=== PATIENT | female | born 1970 | race Caucasian/White ===

== ENCOUNTER 2018-05-02 13:45 | Emergency (ER) | payer MEDICAID ==
[2018-05-02 14:24] VITALS: BP 137/86
[2018-05-02] MEDS ORDERED: GABAPENTIN 100 MG CAPSULE PO STA (15:31)
[2018-05-02] MEDS ORDERED: CYCLOBENZAPRINE 10 MG TABLET PO STA (15:31)
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
[2018-05-02 15:47] LABS: BILIRUBIN,URINE NEGATIVE (NEGATIVE); GLUCOSE, URINE (UA) NEGATIVE (NEGATIVE); KETONES,URINE (UA) NEGATIVE (NEGATIVE); LEUKOCYTE ESTERASE, URINE NEGATIVE (NEGATIVE); NITRITE,URINE NEGATIVE (NEGATIVE); OCCULT BLOOD,URINE NEGATIVE (NEGATIVE); PROTEIN,URINE NEGATIVE (NEGATIVE); UROBILINOGEN,URINE 0.2 (NORMAL) E.U./dL (NORMAL)
[2018-05-02 15:50] LABS: CLARITY,URINE CLEAR (CLEAR)
[2018-05-02 15:51] LABS: HCG UR QUAL NEGATIVE
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
== END 2018-05-02 16:22 | disposition home or self-care (01) ==
LOC: ED 13:45
DX: R61 Generalized hyperhidrosis (principal); R35.0 Frequency of micturition; F13.239 Sedative, hypnotic or anxiolytic dependence with withdrawal, unspecified; S50.02XA Contusion of left elbow, initial encounter; T74.21XA Adult sexual abuse, confirmed, initial encounter; R03.0 Elevated blood-pressure reading, without diagnosis of hypertension
CPT/HCPCS: 73080; 81003; 81025; 99282; 99283; A9270; 81001; 87086

== ENCOUNTER 2018-06-01 10:12 | Emergency (ER) | payer MEDICARE, MEDICAID ==
[2018-06-01 10:25] VITALS: BP 132/73
--- NOTE | 2018-06-01 12:03 | ED Physician Documentation ---
PD HPI URI - Stated complaint Stated Complaint: MED REFILL - Chief complaint Chief Complaint: General - History obtained from History obtained from: Patient - History of Present Illness Timing - onset: How many days ago (feeling anxious, and has had sinus pressure and congestion) Timing duration: Days (has been out of meds for few days. Recently moved here. Does not have PCP as yet. Now with sinus congestion and drainage as well.) Timing details: Still present Associated symptoms: Nasal congestion, Sinus pain. No: Fever, Productive cough, Hemoptysis Contributing factors: No: Sick contact Similar symptoms before: Has not had sx before Recently seen: Not recently seen Review of Systems Constitutional: denies: Fever, Chills, Myalgias Nose: reports: Rhinorrhea / runny nose, Congestion, Sinus pressure / pain Throat: denies: Sore throat Respiratory: denies: Cough GI: denies: Nausea, Vomiting, Diarrhea Skin: denies: Rash, Lesions Neurologic: reports: Generalized weakness. denies: Focal weakness, Numbness Psychiatric: reports: Anxiety. denies: Depressed, Suicidal PD PAST MEDICAL HISTORY - Past Medical History Past Medical History: Yes Psych: Depression, Anxiety - Present Medications Home Medications: Ambulatory Orders Medication Instructions Recorded Confirmed Alprazolam [Xanax] 0.25 mg PO BID #25 tablet 06/01/18 Cyclobenzaprine [Flexeril] 10 mg PO TID PRN #20 tablet 06/01/18 Dexamethasone [Decadron] 4 mg PO DAILY #5 tablet 06/01/18 Doxycycline Monohydrate 100 mg PO BID #14 tablet 06/01/18 Gabapentin 300 mg PO TID #120 capsule 06/01/18 Ibuprofen [Motrin] 800 mg PO Q8H PRN #30 tablet 06/01/18 - Allergies Allergies/Adverse Reactions: Allergies Allergy/AdvReac Type Severity Reaction Status Date / Time Sulfa (Sulfonamide Allergy Intermediate Nausea Verified 06/01/18 10:25 Antibiotics) - Social History Does the pt smoke?: Yes PD ED PE NORMAL - Vitals Vital signs reviewed: Yes - General General: Alert and oriented X 3, No acute distress, Well developed/nourished - HEENT HEENT: Ears normal, Moist mucous membranes, Pharynx benign - Neck Neck: Supple, no meningeal sign, No adenopathy - Cardiac Cardiac: RRR, No murmur - Respiratory Respiratory: Clear bilaterally - Abdomen Abdomen: Soft, Non tender - Derm Derm: Normal color, Warm and dry, No rash - Extremities Extremities: No tenderness to palpate, Normal ROM s pain - Neuro Neuro: Alert and oriented X 3, No motor deficit, Normal speech Results - Vitals Vitals: Vital Signs - 24 hr 06/01/18 10:22 Temperature 35.7 C L Heart Rate 76 Respiratory 15 Rate Blood Pressure 132/73 H O2 Saturation 100 Oxygen O2 Source Room air PD MEDICAL DECISION MAKING - ED course Complexity details: considered differential, d/w patient Departure - Departure Disposition: Home, Self Care Clinical Impression: Medication refill, Anxiety Sinusitis, acute Qualifiers: Sinusitis location: unspecified location Recurrence: non-recurrent Qualified Code(s): J01.90 - Acute sinusitis, unspecified Condition: Stable Record reviewed to determine appropriate education?: Yes Instructions: ED Sinusitis Abx Tx Prescriptions: Alprazolam [Xanax] 0.25 mg PO BID #25 tablet Cyclobenzaprine [Flexeril] 10 mg PO TID PRN #20 tablet PRN Reason: Spasms Dexamethasone [Decadron] 4 mg PO DAILY #5 tablet Doxycycline Monohydrate 100 mg PO BID #14 tablet Gabapentin 300 mg PO TID #120 capsule Ibuprofen [Motrin] 800 mg PO Q8H PRN #30 tablet PRN Reason: PAIN &/OR FEVER Comments: Doxycycline and Decadron for the sinus infection for the infection and inflammation. Continue your other usual medications. Obtain a local primary care provider. You will need to see them for further refills and continued prescriptions. Discharge Date/Time: 06/01/18 12:37
== END 2018-06-01 12:37 | disposition home or self-care (01) ==
LOC: ED 10:12
DX: Z76.0 Encounter for issue of repeat prescription (principal); F41.9 Anxiety disorder, unspecified; J01.90 Acute sinusitis, unspecified
CPT/HCPCS: 99283

== ENCOUNTER 2018-09-13 14:45 | Outpatient (CLI) | payer MEDICARE, MEDICAID ==
--- NOTE | 2018-09-14 09:04 | Mammography Report ---
Reason: MAMMOGRAM YEARLY SCREENING Procedure Date: 09/13/2018 Accession Number: [id number] / [id number] Procedure: JOSE - Screening Mammo w/Bar CPT Code: FULL RESULT: EXAM: Screening Mammo w/Bar DATE: 09/13/2018 3:35 PM CLINICAL HISTORY: Screening encounter. History of benign lump removal by the right breast. TECHNIQUE: Bilateral CC and MLO views were obtained. COMPARISON: Baseline exam. FINDINGS: The breasts demonstrate scattered fibroglandular densities bilaterally. No suspicious masses, clustered microcalcifications, or regions of architectural distortion are identified. IMPRESSION: Negative examination RECOMMENDATION: Routine annual screening unless otherwise clinically indicated. BIRADS CATEGORY 1: Negative STANDARD QUALIFYING STATEMENTS: 1. This examination was not reviewed with the aid of Computer-Aided Detection (CAD). 2. A negative or benign imaging report should not preclude biopsy if clinically suspicious findings are present. 3. Dense breasts may obscure an underlying neoplasm. 4. This examination was reviewed with the aid of 3D breast imaging (tomosynthesis).
== END 2018-09-13 14:46 | disposition home or self-care (01) ==
LOC: DI 14:45
PROVIDERS: ATTEND Physician Assistant Medical
DX: Z12.31 Encounter for screening mammogram for malignant neoplasm of breast (principal)
CPT/HCPCS: 77063; 77067

== ENCOUNTER 2018-11-15 10:59 | Emergency (ER) | payer MEDICARE, MEDICAID ==
--- NOTE | 2018-11-15 11:42 | XRAY Report ---
Reason: PAIN Procedure Date: 11/15/2018 Accession Number: [id number] / [id number] Procedure: XR - Foot 3 View LT CPT Code: FULL RESULT: EXAM: LEFT FOOT RADIOGRAPHY EXAM DATE: 11/15/2018 11:28 AM. CLINICAL HISTORY: Pain. COMPARISON: None. TECHNIQUE: 3 views. FINDINGS: Bones: Mild posterior calcaneal spurring. Os trigonum. No fracture detected. Joints: Normal. No subluxations. Soft Tissues: Soft tissue prominence in the region of Kager's fat pad and the os trigonum. IMPRESSION: Mild posterior calcaneal spurring. Correlate the pain at the insertion of the Achilles tendon. Os trigonum with subtle soft tissue prominence. Correlate to posterior impingement syndrome. RADIA
--- NOTE | 2018-11-15 11:45 | ED Physician Documentation ---
PD HPI LOWER EXT INJURY - Stated complaint Stated Complaint: LT FT PX - Chief complaint Chief Complaint: Ext Problem - History obtained from History obtained from: Patient - History of Present Illness PD HPI LOW EXT INJURY LOCATION: Left, Ankle Type of injury: Fall, Twist Where injury occurred: Home Timing - onset: Yesterday Timing - duration: Days (2) Timing - details: Abrupt onset, Still present Improved by: Rest, Immobilization Worsened by: Moving, Palpating Associated symptoms: Swelling. No: Weakness, Numbness Contributing factors: No: Anticoagulated Similar symptoms before: Diagnosis (ankle/foot fracture) Recently seen: Not recently seen - Additional information Additional information: 48-year-old female who lives in [address] [place] [address] has sprained her ankle and she is having some trouble walking. She has had prior fracture of her foot with some involvement of her Achilles tendon and the tibial plafond. She now has swelling to both sides of the ankle and pain with twisting of the ankle. She also has pain with pain with dorsiflexion and plantarflexion. She has delayed her care for about 2 weeks. Review of Systems Constitutional: denies: Fever Ears: denies: Ear pain Nose: denies: Congestion Respiratory: denies: Cough GI: denies: Vomiting Musculoskeletal: reports: Extremity pain, Joint pain, Joint swelling, Pain with weight bearing. denies: Neck pain, Back pain Neurologic: denies: Generalized weakness, Focal weakness, Numbness PD PAST MEDICAL HISTORY - Past Medical History Past Medical History: Yes Psych: Depression, Anxiety - Present Medications Home Medications: Ambulatory Orders Medication Instructions Recorded Confirmed Alprazolam [Xanax] 0.25 mg PO BID #25 tablet 06/01/18 Cyclobenzaprine [Flexeril] 10 mg PO TID PRN #20 tablet 06/01/18 Dexamethasone [Decadron] 4 mg PO DAILY #5 tablet 06/01/18 Doxycycline Monohydrate 100 mg PO BID #14 tablet 06/01/18 Gabapentin 300 mg PO TID #120 capsule 06/01/18 Ibuprofen [Motrin] 800 mg PO Q8H PRN #30 tablet 06/01/18 Hydrocodone/Acetaminophen 1 - 2 each PO Q6H PRN #14 tablet 11/15/18 [Hydrocodon-Acetaminophen 5-325] - Allergies Allergies/Adverse Reactions: Allergies Allergy/AdvReac Type Severity Reaction Status Date / Time Sulfa (Sulfonamide Allergy Intermediate Nausea Verified 11/15/18 11:08 Antibiotics) - Social History Does the pt smoke?: Yes Smoking Status: Current every day smoker PD ED PE NORMAL - Vitals Vital signs reviewed: Yes (normal) - General General: Alert and oriented X 3, No acute distress, Well developed/nourished - HEENT HEENT: Atraumatic, PERRL - Respiratory Respiratory: No respiratory distress - Derm Derm: Normal color, Warm and dry, No rash - Extremities Extremities: No deformity, Other (There is swelling to the medial and lateral malleoli and there is tenderness. There is tenderness along the achilles and the anterior ankle. 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 Correlate the pain at the insertion of the Achilles tendon os trigonum with subtle soft tissue prominence. Correlate posterior impingement syndrome), EMP read indepedently, See rad report PD MEDICAL DECISION MAKING - ED course Complexity details: considered differential, d/w patient, d/w family ED course: 48-year-old female with a sprained ankle has prior injury to the foot and has pain in those areas as well she will best be served by use of a walking boot. She is resistant to use of this but acquiesces after she tries an ankle stirrup and this is inadequate for control. Departure - Departure Disposition: 01 Home, Self Care Clinical Impression: Ankle sprain Qualifiers: Encounter type: initial encounter Involved ligament of ankle: unspecified ligament Laterality: left Qualified Code(s): S93.402A - Sprain of unspecified ligament of left ankle, initial encounter Condition: Stable Instructions: ED Sprain Ankle W X Ray Follow-Up: Emily Crook DNP [Primary Care Provider] - Prescriptions: Hydrocodone/Acetaminophen [Hydrocodon-Acetaminophen 5-325] 1 - 2 each PO Q6H PRN #14 tablet PRN Reason: pain
[2018-11-15] MEDS ORDERED: IBUPROFEN 600 MG TABLET PO STA (12:55)
[2018-11-15 13:01] VITALS: BP 128/72
== END 2018-11-15 13:00 | disposition home or self-care (01) ==
LOC: ED 10:59
DX: S93.402A Sprain of unspecified ligament of left ankle, initial encounter (principal); X50.1XXA Overexertion from prolonged static or awkward postures, initial encounter; Y92.029 Unspecified place in mobile home as the place of occurrence of the external cause; F17.200 Nicotine dependence, unspecified, uncomplicated
CPT/HCPCS: 73630; 99283; A9270

== ENCOUNTER 2018-12-28 17:41 | Emergency (ER) | payer MEDICARE, MEDICAID ==
[2018-12-28 17:47] VITALS: BP 146/94
[2018-12-28] MEDS ORDERED: IPRATROPIUM/ALBUTEROL 3 ML NEB INH STA (18:00)
--- NOTE | 2018-12-28 18:00 | ED Physician Documentation ---
PD HPI SKIN - Stated complaint Stated Complaint: POSS RASH ON R ARM - Chief complaint Chief Complaint: Wound - History obtained from History obtained from: Patient - History of Present Illness Timing - onset: Other (She has multiple complaints, an itchy rash to the right wrist and forearm that started today. She has had a productive cough that is improving for the last 5 days without shortness of breath. She had a left foot fracture a long time ago and reinjured it recently with an inversion injury and has discoloration over the proximal foot. She is able to walk and bear weight. No other injuries.) Review of Systems Constitutional: reports: Reviewed and negative Throat: reports: Reviewed and negative Cardiac: reports: Reviewed and negative Respiratory: reports: Dyspnea, Cough, Wheezing. denies: Hemoptysis PD PAST MEDICAL HISTORY - Past Medical History Psych: Depression, Anxiety - Present Medications Home Medications: Ambulatory Orders Medication Instructions Recorded Confirmed Alprazolam [Xanax] 0.25 mg PO BID #25 tablet 06/01/18 Cyclobenzaprine [Flexeril] 10 mg PO TID PRN #20 tablet 06/01/18 Dexamethasone [Decadron] 4 mg PO DAILY #5 tablet 06/01/18 Doxycycline Monohydrate 100 mg PO BID #14 tablet 06/01/18 Gabapentin 300 mg PO TID #120 capsule 06/01/18 Ibuprofen [Motrin] 800 mg PO Q8H PRN #30 tablet 06/01/18 Hydrocodone/Acetaminophen 1 - 2 each PO Q6H PRN #14 tablet 11/15/18 [Hydrocodon-Acetaminophen 5-325] Albuterol Sulf [Ventolin Hfa 1 - 2 puffs INH Q4HR PRN #1 inhaler 12/28/18 Inhaler] Mometasone Furoate [Nasonex] 1 spray NS BID #1 spray.pump 12/28/18 Permethrin 5% Cream 1 applic TOP ONCE #2 tube 12/28/18 Triamcinolone 0.1% Oint [Kenalog 1 gm TOP BID #2 tube 12/28/18 0.1% Oint] - Allergies Allergies/Adverse Reactions: Allergies Allergy/AdvReac Type Severity Reaction Status Date / Time Sulfa (Sulfonamide Allergy Intermediate Nausea Verified 11/15/18 11:08 Antibiotics) - Social History Does the pt smoke?: Yes Smoking Status: Current every day smoker PD ED PE NORMAL - Vitals Vital signs reviewed: Yes - General General: Alert and oriented X 3, No acute distress - Neck Neck: Supple, no meningeal sign, No bony TTP - Cardiac Cardiac: RRR, No murmur - Respiratory Respiratory: Other (Mild rhonchi and wheezing throughout, nothing focal) - Abdomen Abdomen: Non tender - Derm Derm: Other (There is a little dermatitis to the anterior right wrist flexor crease that could be scabies or a local dermatitis) - Extremities Extremities: Other (Mild tenderness to the proximal forefoot, left) - Neuro Neuro: Alert and oriented X 3, Normal speech Results - Vitals Vitals: Vital Signs - 24 hr 12/28/18 17:45 Temperature 36.4 C L Heart Rate 70 Respiratory 18 Rate Blood Pressure 146/94 H O2 Saturation 99 Oxygen O2 Source Room air - Rads (name of study) L ankle and foot Radiology: EMP read contemporaneously (Widening of the ankle mortise) PD MEDICAL DECISION MAKING - ED course ED course: Is a 48-year-old woman who presents the emergency department with multiple complaints, her chief complaint is dermatitis on the right wrist which could be atopic or contact were scabies. She is treated for both. Secondly she had an ankle Injury a couple of months ago and has persistent pain. X-ray demonstrates widening of the ankle mortise. She is placed in a boot and advised on orthopedic follow-up. Finally she has what seems like bronchitis and improved after a DuoNeb here. She is counseled to quit smoking. Departure - Departure Disposition: 01 Home, Self Care Clinical Impression: Dermatitis, Bronchitis Ankle sprain Qualifiers: Encounter type: initial encounter Involved ligament of ankle: deltoid ligament Laterality: left Qualified Code(s): S93.422A - Sprain of deltoid ligament of left ankle, initial encounter Condition: Good Record reviewed to determine appropriate education?: Yes Instructions: ED Bronchitis Asthmatic, ED Sprain Ankle, ED Dermatitis Atopic Eczema Follow-Up: [facility] [Provider Group] - Within 1 week Prescriptions: Albuterol Sulf [Ventolin Hfa Inhaler] 1 - 2 puffs INH Q4HR PRN #1 inhaler PRN Reason: Shortness Of Air/Wheezing Mometasone Furoate [Nasonex] 1 spray NS BID #1 spray.pump Permethrin 5% Cream 1 applic TOP ONCE #2 tube Triamcinolone 0.1% Oint [Kenalog 0.1% Oint] 1 gm TOP BID #2 tube Comments: Your blood pressure was elevated today on check into the emergency department. This does not mean that you have hypertension, it is a common phenomenon to come to the emergency department and have elevated blood pressure. I recommend that you see your primary care physician within the week to have it rechecked when you are feeling better.
--- NOTE | 2018-12-28 18:30 | XRAY Report ---
Reason: ankle inj Procedure Date: 12/28/2018 Accession Number: [id number] / [id number] Procedure: XR - Ankle 3 View LT CPT Code: FULL RESULT: EXAM: LEFT ANKLE RADIOGRAPHY EXAM DATE: 12/28/2018 06:17 PM. CLINICAL HISTORY: Ankle inj. COMPARISON: FOOT 3 VIEW LT 11/15/2018 11:12 AM. TECHNIQUE: 3 views. FINDINGS: Bones: No acute fracture or dislocation visualized. The talar dome is intact. Joints: On the AP view, there is abnormal widening of the superior/lateral mortise clear space. No ankle joint effusion. Soft Tissues: Again seen are rounded ossific densities projecting anterior to the tibiotalar joint, which were present on the prior exam. Unchanged os trigonum. Small enthesophyte at the Achilles tendon attachment to the posterior calcaneus. Soft tissue swelling overlying the lateral malleolus. IMPRESSION: No acute fracture visualized. Abnormal widening of the superior/lateral mortise clear space. Recommend correlation for evidence of ankle instability. Soft tissue swelling overlying the lateral malleolus. RADIA
--- NOTE | 2018-12-28 18:34 | XRAY Report ---
Reason: foot inj Procedure Date: 12/28/2018 Accession Number: [id number] / [id number] Procedure: XR - Foot 3 View LT CPT Code: FULL RESULT: EXAM: LEFT FOOT RADIOGRAPHY EXAM DATE: 12/28/2018 06:17 PM. CLINICAL HISTORY: Foot inj. COMPARISON: FOOT 3 VIEW LT 11/15/2018 11:12 AM. TECHNIQUE: 3 views. FINDINGS: Bones: No acute fracture or dislocation visualized. Os trigonum is unchanged. Joints: No ankle joint effusion. Joint spaces appear preserved. Soft Tissues: There is some dorsal soft tissue swelling overlying the midfoot. Again seen are rounded ossific densities projecting anterior to the tibiotalar joint, which were present on the prior exam. IMPRESSION: No acute fracture or dislocation visualized. Dorsal soft tissue swelling overlying the midfoot. RADIA
== END 2018-12-28 19:08 | disposition home or self-care (01) ==
LOC: ED 17:41
DX: L30.9 Dermatitis, unspecified (principal); J40 Bronchitis, not specified as acute or chronic; S93.422A Sprain of deltoid ligament of left ankle, initial encounter; X58.XXXA Exposure to other specified factors, initial encounter; R03.0 Elevated blood-pressure reading, without diagnosis of hypertension; F17.200 Nicotine dependence, unspecified, uncomplicated
CPT/HCPCS: 99283

== ENCOUNTER 2019-04-12 14:37 | Emergency (ER) | payer MEDICARE, MEDICAID ==
[2019-04-12 14:44] VITALS: BP 123/101
[2019-04-12] MEDS ORDERED: IBUPROFEN 800 MG TABLET PO STA (14:59)
--- NOTE | 2019-04-12 15:01 | ED Physician Documentation ---
PD HPI LOWER EXT INJURY - Stated complaint Stated Complaint: ERASMO HIP PX/NECK PX - Chief complaint Chief Complaint: Ext Problem - History obtained from History obtained from: Patient - History of Present Illness PD HPI LOW EXT INJURY LOCATION: Left (49-year-old woman who is in transitional housing presents with chronic pain of the left hip, left ankle and back related to a remote injury. No recent injury. She is having trouble with primary care because she missed a lot of appointments locally. She has multiple requests including Ramiro wrap, an air splint, gabapentin, Flexeril, Tylenol No. 3, Celeb peter, and physical therapy. No acute issues. She has pain that is chronic in the left foot and ankle and that is causing her to walk funny which is caused her hip and back to hurt.) Review of Systems Constitutional: denies: Fever, Chills GI: denies: Abdominal Pain, Nausea, Vomiting : denies: Dysuria, Frequency, Incontinent PD PAST MEDICAL HISTORY - Past Medical History Psych: Depression, Anxiety - Present Medications Home Medications: Ambulatory Orders Medication Instructions Recorded Confirmed Alprazolam [Xanax] 0.25 mg PO BID #25 tablet 06/01/18 Cyclobenzaprine [Flexeril] 10 mg PO TID PRN #20 tablet 06/01/18 Doxycycline Monohydrate 100 mg PO BID #14 tablet 06/01/18 Gabapentin 300 mg PO TID #120 capsule 06/01/18 Ibuprofen [Motrin] 800 mg PO Q8H PRN #30 tablet 06/01/18 dexAMETHasone [Decadron] 4 mg PO DAILY #5 tablet 06/01/18 Hydrocodone/Acetaminophen 1 - 2 each PO Q6H PRN #14 tablet 11/15/18 [Hydrocodon-Acetaminophen 5-325] Albuterol Sulf [Ventolin Hfa 1 - 2 puffs INH Q4HR PRN #1 inhaler 12/28/18 Inhaler] Mometasone Furoate [Nasonex] 1 spray NS BID #1 spray.pump 12/28/18 Permethrin 5% Cream 1 applic TOP ONCE #2 tube 12/28/18 Triamcinolone 0.1% Oint [Kenalog 1 gm TOP BID #2 tube 12/28/18 0.1% Oint] Celecoxib [CeleBREX] 100 mg PO BID #60 capsule 04/12/19 Cyclobenzaprine [Flexeril] 10 mg PO TID PRN #20 tablet 04/12/19 Gabapentin [Neurontin] 300 mg PO QID #60 capsule 04/12/19 - Allergies Allergies/Adverse Reactions: Allergies Allergy/AdvReac Type Severity Reaction Status Date / Time Sulfa (Sulfonamide Allergy Intermediate Nausea Verified 11/15/18 11:08 Antibiotics) - Social History Does the pt smoke?: Yes Smoking Status: Current every day smoker Does the pt drink ETOH?: Yes - POLST Patient has POLST: No PD ED PE NORMAL - Vitals Vital signs reviewed: Yes - General General: Alert and oriented X 3, No acute distress - HEENT HEENT: PERRL, EOMI - Neck Neck: Supple, no meningeal sign, No bony TTP - Back Back: No spinal TTP, Other (Tender in the left sciatic notch) - Extremities Extremities: Other (Mild tenderness of the left foot, no deformity. She has slightly diminished sensation in her the right leg, nondermatomal pattern with equal Achilles and patellar reflexes. Normal gait.) - Neuro Neuro: Alert and oriented X 3, Normal speech Results - Vitals Vitals: Vital Signs - 24 hr 04/12/19 14:41 Temperature 36.5 C Heart Rate 84 Respiratory 14 Rate Blood Pressure 123/101 H O2 Saturation 96 Oxygen O2 Source Room air PD MEDICAL DECISION MAKING - ED course ED course: This is a 49-year-old woman with chronic pain due to remote injury. No primary care. Per her request she is administered an Ramiro wrap and air splint. She is refilled for gabapentin, Flexeril. Also Celebrex, noting that we had a discussion about the potential thrombotic complications including but not limited to DVT, PE, stroke, CA, peripheral vascular disease. She understands and like the medication. She also requested Tylenol 3, given the chronic nature of her issues this was refused. I also wrote a prescription for physical therapy, note that this will not show up in the medical record system as the medical record system does not allow me to write a prescription for physical therapy and as such it was hand written. Departure - Departure Disposition: 01 Home, Self Care Clinical Impression: Medication refill Pain of lower extremity Qualifiers: Laterality: left Qualified Code(s): M79.605 - Pain in left leg Back pain Qualifiers: Back pain location: low back pain Chronicity: chronic Back pain laterality: left Sciatica presence: unspecified whether sciatica present Qualified Code(s): M54.5 - Low back pain; G89.29 - Other chronic pain Condition: Good Record reviewed to determine appropriate education?: Yes Instructions: ED Chronic Pain Management Prescriptions: Celecoxib [CeleBREX] 100 mg PO BID #60 capsule Cyclobenzaprine [Flexeril] 10 mg PO TID PRN #20 tablet PRN Reason: Spasms Gabapentin [Neurontin] 300 mg PO QID #60 capsule Comments: As discussed it is important follow-up with primary care physician for your ongoing issues, return for new worsening symptoms.
== END 2019-04-12 15:10 | disposition home or self-care (01) ==
LOC: ED 14:37
DX: G89.29 Other chronic pain (principal); M79.605 Pain in left leg; M54.5 Low back pain; F17.200 Nicotine dependence, unspecified, uncomplicated; Z76.0 Encounter for issue of repeat prescription
CPT/HCPCS: 99282; 99283; A9270

== ENCOUNTER 2020-07-02 13:37 | Outpatient (CLI) | payer MEDICARE, MEDICAID | END 2020-07-02 13:38 | disposition critical access hospital (66) | LOC: EMS 13:37 | PROVIDERS: ATTEND Surgery | DX: R19.7 Diarrhea, unspecified (principal); K92.1 Melena | CPT/HCPCS: A0425; A0427 ==

== ENCOUNTER 2020-07-02 14:10 | Emergency (ER) | payer MEDICARE, MEDICAID ==
[2020-07-02] MEDS ORDERED: SODIUM CHLORIDE 0.9% 1,000 ML IV STA (14:33)
[2020-07-02] MEDS ORDERED: ONDANSETRON 4 MG/2 ML VIAL IVP STA (14:36)
[2020-07-02] MEDS ORDERED: HYDROmorphone 1 MG/ML CARPUJECT IVP STA (14:36)
--- NOTE | 2020-07-02 14:36 | ED Physician Documentation ---
History of Present Illness - Stated complaint Stated Complaint: GI BLEED - Chief complaint Chief Complaint: Abd Pain - History obtained from History obtained from: Patient, EMS - History of Present Illness Timing: Last night - Additonal information Additional information: 50-year-old female is brought into the emergency department for evaluation of bright red blood per rectum. She reports that at approximately 1030 last night she began having bloody diarrhea and has had at least 7-8 episodes of hematochezia since then. She reports a history of similar about 5 years ago in [place]. She underwent colonoscopy and was told that she had bleeding polyps. She denies any chest pain or syncope. She does have generalized abdominal tenderness. She does have a history of hypertension. She is homeless and lives in her vehicle at the present time. Social: Positive tobacco, daily cannabis, occasional methamphetamine. Denies alcohol. Meds: Gabapentin, Flexeril, losartan, propranolol, ibuprofen 800 mg twice daily for at least 2 to 3 months Review of Systems Constitutional: denies: Fever, Chills Eyes: reports: Reviewed and negative Ears: reports: Reviewed and negative Nose: reports: Reviewed and negative Throat: reports: Reviewed and negative Cardiac: denies: Chest pain / pressure, Palpitations Respiratory: denies: Dyspnea, Cough GI: reports: Abdominal Pain, Nausea, Bloody / black stool. denies: Vomiting : denies: Dysuria, Hesitancy Skin: denies: Rash, Lesions Musculoskeletal: denies: Neck pain, Back pain Neurologic: reports: Reviewed and negative PD PAST MEDICAL HISTORY - Past Medical History Past Medical History: Yes Psych: Depression, Anxiety - Past Surgical History Past Surgical History: No - Present Medications Home Medications: Ambulatory Orders Medication Instructions Recorded Confirmed Alprazolam [Xanax] 0.25 mg PO BID #25 tablet 06/01/18 Cyclobenzaprine [Flexeril] 10 mg PO TID PRN #20 tablet 06/01/18 Doxycycline Monohydrate 100 mg PO BID #14 tablet 06/01/18 Gabapentin 300 mg PO TID #120 capsule 06/01/18 Ibuprofen [Motrin] 800 mg PO Q8H PRN #30 tablet 06/01/18 dexAMETHasone [Decadron] 4 mg PO DAILY #5 tablet 06/01/18 Hydrocodone/Acetaminophen 1 - 2 each PO Q6H PRN #14 tablet 11/15/18 [Hydrocodon-Acetaminophen 5-325] Albuterol Sulf [Ventolin Hfa 1 - 2 puffs INH Q4HR PRN #1 inhaler 12/28/18 Inhaler] Mometasone Furoate [Nasonex] 1 spray NS BID #1 spray.pump 12/28/18 Permethrin 5% Cream 1 applic TOP ONCE #2 tube 12/28/18 Triamcinolone 0.1% Oint [Kenalog 1 gm TOP BID #2 tube 12/28/18 0.1% Oint] Celecoxib [CeleBREX] 100 mg PO BID #60 capsule 04/12/19 Cyclobenzaprine [Flexeril] 10 mg PO TID PRN #20 tablet 04/12/19 Gabapentin [Neurontin] 300 mg PO QID #60 capsule 04/12/19 Amox/Clav 875/125 [Augmentin] 1 each PO Q12H #20 tablet 07/02/20 - Allergies Allergies/Adverse Reactions: Allergies Allergy/AdvReac Type Severity Reaction Status Date / Time Sulfa (Sulfonamide Allergy Intermediate Nausea Verified 07/02/20 14:13 Antibiotics) - Social History Does the pt smoke?: Yes Smoking Status: Current every day smoker Does the pt drink ETOH?: Yes Does the pt have substance abuse?: No - Immunizations Immunizations are current?: Yes - POLST Patient has POLST: No PD ED PE EXPANDED - General General: Alert, Disheveled, poorly kept (generally poor hygeine), In Pain, In distress - HEENT HEENT: Head injury, PERRL - Neck Neck: Supple w/out meningeal sx, No tenderness. No: JVD present, Adenopathy - Cardiac Cardiac: Regular Rate, Radial strong equal, Pedal strong equal, Cap refill < 2 sec - Respiratory Respiratory: Clear to ausultation judy. No: Distress, Labored - Abdomen Abdomen: Normal Bowel sounds, Generalized/diffuse (Diffusely tender abdomen without guarding or rebound.) - Rectal Rectal: Normal Tone, Other (Large amount of bright red blood per rectum/hematochezia on digital rectal exam) - Derm Derm: Normal color. No: Rash, Petecchiae, Purpura - Extremities Extremities: Normal - Neuro Neuro: Alert and Oriented X 3, CNII-XII intact, Normal speech - GCS Eye Opening: Spontaneous Motor: Obeys Commands Verbal: Oriented Total: 15 Results - Vitals Vitals: Vital Signs - 24 hr 07/02/20 07/02/20 14:14 14:17 Temperature 36.9 C 36.9 C Heart Rate 74 74 Respiratory 16 16 Rate Blood Pressure 175/99 H 175/99 H O2 Saturation 100 100 Oxygen O2 Source Room air - EKG (time done) 1436 Rate: Rate (enter#) (66) Rhythm: NSR [place]: Normal Intervals: Normal [place] QRS: Normal Ischemia: Normal ST segments Compare to prior EKG: Old EKG unavailable Computer interpretation: Agree with computer - Labs Labs: Laboratory Tests 07/02/20 07/02/20 07/02/20 14:39 14:39 14:39 WBC 18.8 H RBC 5.22 Hgb 15.3 Hct 47.2 H MCV 90.4 MCH 29.3 MCHC 32.4 RDW 14.0 Plt Count 379 MPV 9.8 Neut # (Auto) 15.0 H Lymph # (Auto) 2.6 [place] # (Auto) 0.9 Eos # (Auto) 0.1 Baso # (Auto) 0.1 Absolute Nucleated RBC 0.00 Nucleated RBC % 0.0 Sodium 137 Potassium 3.9 Chloride 99 L Carbon Dioxide 26 Anion Gap 12.0 BUN 12 Creatinine 0.7 Estimated GFR (MDRD) 89 Glucose 123 H Lactic Acid 1.3 Calcium 9.4 Total Bilirubin 0.7 AST 21 ALT 27 Alkaline Phosphatase 91 Troponin I High Sens Total Protein 7.2 Albumin 3.7 Globulin 3.5 Albumin/Globulin Ratio 1.1 Lipase 34 Serum HCG, Qual Blood Type 07/02/20 07/02/20 07/02/20 14:39 14:39 14:39 WBC RBC Hgb Hct MCV MCH MCHC RDW Plt Count MPV Neut # (Auto) Lymph # (Auto) [place] # (Auto) Eos # (Auto) Baso # (Auto) Absolute Nucleated RBC Nucleated RBC % Sodium Potassium Chloride Carbon Dioxide Anion Gap BUN Creatinine Estimated GFR (MDRD) Glucose Lactic Acid Calcium Total Bilirubin AST ALT Alkaline Phosphatase Troponin I High Sens 4.1 Total Protein Albumin Globulin Albumin/Globulin Ratio Lipase Serum HCG, Qual NEGATIVE Blood Type A POSITIVE - Rads (name of study) CT angio abdomen Radiology: Final report received (Colitis of the left colon, infectious versus inflammatory. No active extravasation) PD MEDICAL DECISION MAKING - ED course Complexity details: reviewed results, re-evaluated patient, considered differential, d/w patient ED course: 50-year-old female presents to the emergency department with chief complaint of bloody rectum and bright red diarrhea. She reports a history of similar in the past with bleeding polyps. Here in the emergency department we had no tachycardia or hypotension. Her hemoglobin was quite stable at 15 g. I do appreciate moderate leukocytosis in this patient however is likely marginalization or stress reaction. Her lactic acid is normal. No fever here. Electrolytes were also unremarkable. A CT angio of the abdomen showed that she likely has colitis. Given hemodynamic stability there is no indication at this time for admission to the emergency department. Patient will be started on Augmentin to be taken twice a day for the next 10 days. It was also advised that she abstain from further ibuprofen use. Patient will return to the emergency department for fevers, if the bloody stools do not improve uncontrolled vomiting or abdominal pain Departure - Departure Disposition: 01 Home, Self Care Clinical Impression: Colitis Condition: Stable Record reviewed to determine appropriate education?: Yes Prescriptions: Amox/Clav 875/125 [Augmentin] 1 each PO Q12H #20 tablet Comments: Marcella, you were seen today for bloody diarrhea and rectal bleeding. The CT of your abdomen shows that you have colitis or inflammation of the large intestine. We need to start you on a 10-day course of antibiotics. I have prescribed Augmentin. Your first dose is being given here in the emergency department. I would expect with the antibiotics that you are having less pain or bloody diarrhea over the next 24 to 48 hours. If not improving please return to the ER. You also need to stop taking the ibuprofen that you are taking. This does increase your risk for bleeding. If you develop fevers, have chest pain, difficulty breathing or any other emergent symptoms please do not hesitate to return to the ER
[2020-07-02 15:02] LABS: BASOPHILS # (AUTO) 0.1 10^3/uL (0.0-0.1); BASOPHILS % (AUTO) 0.6 %; EOSINOPHILS # (AUTO) 0.1 10^3/uL (0.0-0.7); EOSINOPHILS % (AUTO) 0.6 %; HGB - HEMOGLOBIN 15.3 g/dL (12.0-16.0); LYMPHOCYTES # (AUTO) 2.6 10^3/uL (1.5-3.5); LYMPHOCYTES % (AUTO) 13.9 %; MEAN CORPUSCULAR HEMOGLOBIN 29.3 pg (27.0-31.0); MEAN CORPUSCULAR HGB CONC 32.4 g/dL (32.0-36.0); MEAN CORPUSCULAR VOLUME 90.4 fL (81.0-99.0); MEAN PLATELET VOLUME 9.8 fL (7.9-10.8); MONOCYTES # (AUTO) 0.9 10^3/uL (0.0-1.0); NEUTROPHILS % (AUTO) 79.4 %; PLT - PLATELET COUNT 379 10^3/uL (130-450); RED BLOOD COUNT 5.22 10^6/uL (4.20-5.40); WHITE BLOOD COUNT 18.8 x10^3/uL (4.8-10.8)
[2020-07-02 15:23] LABS: ALBUMIN 3.7 g/dL (3.2-5.5); ALBUMIN/GLOBULIN RATIO 1.1 (1.0-2.2); BILIRUBIN,TOTAL 0.7 mg/dL (0.2-1.0); CALCIUM 9.4 mg/dL (8.5-10.3); CREATININE 0.7 mg/dL (0.4-1.0); TOTAL PROTEIN 7.2 g/dL (6.7-8.2)
[2020-07-02] MEDS ORDERED: IOVERSOL 320 100 ML VIAL IVP ONE ×2 (15:36→17:12)
[2020-07-02 15:58] LABS: HCG,QUALITATIVE BLOOD NEGATIVE
--- NOTE | 2020-07-02 16:16 | CT Report ---
PROCEDURE: ANGIO ABDOMEN/PELVIS W INDICATIONS: BRBRP CONTRAST: IV CONTRAST: Optiray 320 ml: 100 PO CONTRAST: *NO PO CONTRAST TECHNIQUE: After the administration of iodonated contrast, 5 mm thick sections acquired from the diaphragms to t he symphysis. 5 mm thick coronal and sagittal reformats were acquired. For radiation dose reduction , the following was used: automated exposure control, adjustment of mA and/or kV according to patien t size. COMPARISON: None. FINDINGS: Image quality: Excellent. ABDOMEN: Lung bases: Lung bases are clear. Heart size is normal. Solid organs: The liver, gallbladder, pancreas, spleen, adrenal glands, and kidneys are normal. Bowel: The left colon demonstrates mucosal thickening and mucosal edema with periserosal inflammation consistent with colitis. There is no active extravasation. Free air/free fluid: No free air or free fluid in the abdomen or pelvis. Abdominal wall: No abdominal wall mass or hernia. Retroperitoneum: No retroperitoneal adenopathy or mass. Lymph nodes: No abdominal adenopathy. Bones: Multilevel degenerative changes are minimal. There is disc disease at L5-S1. PELVIS: Genitourinary: [Bladder wall thickness is normal. ][] Miscellaneous: [No inguinal hernias or adenopathy. ][] IMPRESSION: 1. Colitis of the left colon, infectious versus inflammatory. 2. No active extravasation. Reviewed by: João Trevino on 07/02/2020 4:15 PM PST Approved by: João Trevino on 07/02/2020 4:15 PM PST Station ID: [id number]
[2020-07-02] MEDS ORDERED: AMOX/CLAV 875 MG/125 MG TABLET PO STA (16:33)
[2020-07-02 18:31] VITALS: BP 128/60
== END 2020-07-02 18:31 | disposition home or self-care (01) ==
LOC: ED 14:10
DX: K52.9 Noninfective gastroenteritis and colitis, unspecified (principal); I10 Essential (primary) hypertension; F17.200 Nicotine dependence, unspecified, uncomplicated; Z59.0 Homelessness
CPT/HCPCS: 36415; 74174; 80053; 83605; 83690; 84484; 84703; 85025; 86900; 86901; 93005; 99284; A9270; J1170; Q9967

== ENCOUNTER 2020-08-18 11:41 | Emergency (ER) | payer OTHER, MEDICARE, MEDICAID ==
[2020-08-18] MEDS ORDERED: MELOXICAM 7.5 MG TABLET PO STA (12:41)
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
[2020-08-18 13:42] VITALS: BP 131/92
== END 2020-08-18 14:33 | disposition home or self-care (01) ==
LOC: ED 11:41
DX: S16.1XXA Strain of muscle, fascia and tendon at neck level, initial encounter (principal); S60.222A Contusion of left hand, initial encounter; S46.911A Strain of unspecified muscle, fascia and tendon at shoulder and upper arm level, right arm, initial encounter; Y04.2XXA Assault by strike against or bumped into by another person, initial encounter; Y93.E9 Activity, other interior property and clothing maintenance; F17.200 Nicotine dependence, unspecified, uncomplicated
CPT/HCPCS: 72125; 73030; 73130; 99283; 99284; A9270

== ENCOUNTER 2020-10-07 12:39 | Emergency (ER) | payer MEDICARE, MEDICAID ==
[2020-10-07 12:53] VITALS: BP 132/69
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
== END 2020-10-07 13:28 | disposition home or self-care (01) ==
LOC: ED 12:39
DX: Z76.0 Encounter for issue of repeat prescription (principal); F17.200 Nicotine dependence, unspecified, uncomplicated
CPT/HCPCS: 99283; 99284

== ENCOUNTER 2020-10-28 12:13 | Outpatient (CLI) | payer MEDICARE, MEDICAID | END 2020-10-28 12:14 | disposition critical access hospital (66) | LOC: EMS 12:13 | PROVIDERS: ATTEND Emergency Medicine | DX: M53.3 Sacrococcygeal disorders, not elsewhere classified (principal); M54.2 Cervicalgia | CPT/HCPCS: A0425; A0429 ==

== ENCOUNTER 2020-10-28 12:35 | Emergency (ER) | payer MEDICARE, MEDICAID ==
--- NOTE | 2020-10-28 13:10 | ED Physician Documentation ---
PD HPI BACK PAIN - Stated complaint Stated Complaint: TAILBONE, NECK, FOOT PX - Chief complaint Chief Complaint: General - History obtained from History obtained from: Patient - History of Present Illness Timing - onset: How many days ago (1-2 days of feet hurting on bottoms after walking a lot. Also having exac of her chronic low back pain.) Timing - details: Abrupt onset, Still present Location: Lower, Right (mostly midline above tailbone.), Left Quality: Pain, Spasm. No: Tearing, Aching Associated symptoms: No: Fever, Weakness, Numbness Improves with: Rest, Meds (her meds commonly help the pain, but she says gabapentin and flexeril were taken from her at the [facility]. then walked a lot today and this has caused the bottoms of her feet to hurt.) Worsened by: Movement, Twisting Similar symptoms before: Diagnosis (sciatic back pain.) Recently seen: Emergency Dept (seen a month ago for meds refills. Has not been able to primary care appt as yet and states meds taken at the [facility] (which is actually reasonably plausible).) Review of Systems Constitutional: denies: Fever, Chills Nose: reports: Congestion. 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 - Present Medications Home Medications: Ambulatory Orders Medication Instructions Recorded Confirmed Acetaminophen/Cod 300/30 [Tylenol 1 each PO Q6H PRN #12 10/07/20 #3] Cyclobenzaprine [Flexeril] 10 mg PO TID PRN #42 tab 10/07/20 Gabapentin [Neurontin] 300 mg PO QID #56 10/07/20 Lisinopril [Zestril] 10 mg PO DAILY #30 10/07/20 Propranolol [Inderal] 40 mg PO BID #60 10/07/20 hydrOXYzine pamoate [Hydroxyzine 100 mg PO QID PRN #56 10/07/20 Pamoate] Cyclobenzaprine [Flexeril] 10 mg PO TID PRN #30 tablet 10/28/20 Gabapentin [Neurontin] 400 mg PO TID #30 10/28/20 HYDROcod/ACETAM 5/325 [[place] 5/325] 1 ea PO Q6H PRN #12 tablet 10/28/20 dexAMETHasone [Decadron] 4 mg PO DAILY #5 tablet 10/28/20 - Allergies Allergies/Adverse Reactions: Allergies Allergy/AdvReac Type Severity Reaction Status Date / Time Sulfa (Sulfonamide Allergy Intermediate Nausea Verified 10/07/20 12:50 Antibiotics) - Social History Does the pt smoke?: Yes Smoking Status: Current every day smoker Does the pt drink ETOH?: Yes Does the pt have substance abuse?: Yes - Immunizations Immunizations are current?: Yes - POLST Patient has POLST: No PD ED PE NORMAL - Vitals Vital signs reviewed: Yes - General General: Alert and oriented X 3, Well developed/nourished - HEENT HEENT: Moist mucous membranes, Pharynx benign - Neck Neck: Supple, no meningeal sign, No adenopathy - Cardiac Cardiac: RRR, No murmur - Respiratory Respiratory: Clear bilaterally - Abdomen Abdomen: Soft, Non tender - Back Back: No CVA TTP, Other (tender lower back left and right above the SI joints. No rash nor redness. ) - Derm Derm: Normal color, Warm and dry, No rash - Neuro Neuro: Alert and oriented X 3, No motor deficit, No sensory deficit, Normal speech Results - Vitals Vitals: Vital Signs - 24 hr 10/28/20 10/28/20 12:45 15:16 Temperature 37.1 C Heart Rate 68 67 Respiratory 16 19 Rate Blood Pressure 141/92 H 140/90 H O2 Saturation 100 100 Oxygen O2 Source Room air PD MEDICAL DECISION MAKING - ED course Complexity details: reviewed old records (no [facility] reports for her), considered differential (some URI symptoms and she is concerned about COVID. Also exac of her ongoing back pain. Without her usual meds for that. ) Departure - Departure Disposition: 01 Home, Self Care Clinical Impression: Plantar fasciitis, bilateral Low back pain Qualifiers: Chronicity: chronic Back pain laterality: unspecified Sciatica presence: without sciatica Qualified Code(s): M54.5 - Low back pain Condition: Stable Record reviewed to determine appropriate education?: Yes Instructions: ED Spasm Back No Trauma, ED Plantar Fasciitis Follow-Up: [facility] [Provider Group] [facility] [Provider Group] Prescriptions: dexAMETHasone [Decadron] 4 mg PO DAILY #5 tablet Cyclobenzaprine [Flexeril] 10 mg PO TID PRN #30 tablet PRN Reason: Spasms Gabapentin [Neurontin] 400 mg PO TID #30 HYDROcod/ACETAM 5/325 [[place] 5/325] 1 ea PO Q6H PRN #12 tablet PRN Reason: Pain Comments: Call to obtain a follow-up primary care appointment. Continue usual medications. I wrote for the Flexeril and gabapentin. For the gabapentin I change the dosage and interval slightly but it still is a total of 1200 mg daily, the same as what you had been taking. Decadron anti-inflammatory daily for 5 days to help generally with symptoms. Add Tylenol or hydrocodone if needed for pains in the short-term. Follow-up with the primary care regarding ongoing medications. Discharge Date/Time: 10/28/20 15:16
[2020-10-28] MEDS ORDERED: HYDROcod/ACETAM 5/325 MG TABLET PO STA (13:43)
[2020-10-28] MEDS ORDERED: KETOROLAC 30 MG/ML VIAL IM STA (13:43)
[2020-10-28] MEDS ORDERED: GABAPENTIN 100 MG CAPSULE PO STA (13:43)
[2020-10-28] MEDS ORDERED: CYCLOBENZAPRINE 10 MG TABLET PO STA (13:45)
[2020-10-28 15:17] VITALS: BP 140/90
== END 2020-10-28 15:16 | disposition home or self-care (01) ==
LOC: EDUNIT# → ED 12:35
DX: M72.2 Plantar fascial fibromatosis (principal); M54.5 Low back pain; R05 Cough; R09.81 Nasal congestion; Z20.822 Contact with and (suspected) exposure to COVID-19; F17.200 Nicotine dependence, unspecified, uncomplicated
CPT/HCPCS: 96372; 99283; 99284; A9270; U0004

== ENCOUNTER 2020-11-09 11:30 | Emergency (ER) | payer MEDICARE, MEDICAID ==
[2020-11-09] MEDS ORDERED: CLINDAMYCIN 150 MG CAPSULE PO STA (12:25)
--- NOTE | 2020-11-09 12:28 | ED Physician Documentation ---
History of Present Illness - Stated complaint Stated Complaint: FEMALE - Chief complaint Chief Complaint: Wound - History obtained from History obtained from: Patient - History of Present Illness Timing: How many days ago (3) Pain level max: 0 Pain level now: 0 - Additonal information Additional information: 50-year-old female states that she believes she may have been bit by something when urinating over a bucket a few days ago. States she has redness and swelling to her perineum. Nothing makes it better or worse. No fevers. No chills. 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 HEENT: Tonsil/Adenoidectomy - Present Medications Home Medications: Ambulatory Orders Medication Instructions Recorded Confirmed Lisinopril [Zestril] 10 mg PO DAILY #30 10/07/20 11/09/20 Propranolol [Inderal] 40 mg PO BID #60 10/07/20 11/09/20 hydrOXYzine pamoate [Hydroxyzine 100 mg PO QID PRN #56 10/07/20 11/09/20 Pamoate] Cyclobenzaprine [Flexeril] 10 mg PO TID PRN #30 tablet 10/28/20 11/09/20 Gabapentin [Neurontin] 400 mg PO QID 11/09/20 11/09/20 clindamycin HCL [Cleocin HCl] 300 mg PO Q6H #40 cap 11/09/20 - Allergies Allergies/Adverse Reactions: Allergies Allergy/AdvReac Type Severity Reaction Status Date / Time Sulfa (Sulfonamide Allergy Intermediate Nausea Verified 11/09/20 11:42 Antibiotics) - Social History Does the pt smoke?: Yes Smoking Status: Current every day smoker Does the pt drink ETOH?: Yes Does the pt have substance abuse?: Yes Substance Use and Type: Marijuana, CBD oil / Products - Immunizations Immunizations are current?: Yes - POLST Patient has POLST: No PD ED PE NORMAL - Vitals Vital signs reviewed: Yes - General General: Alert and oriented X 3, No acute distress - HEENT HEENT: Moist mucous membranes - Neck Neck: Supple, no meningeal sign - Cardiac Cardiac: RRR - Respiratory Respiratory: No respiratory distress, Clear bilaterally - Abdomen Abdomen: Soft, Non tender, Non distended - Female Female : Other (2 x 2 centimeter erythematous area to the right inner proximal thigh. No induration or fluctuance. No drainage.) - Derm Derm: Warm and dry - Extremities Extremities: No edema - Neuro Neuro: Alert and oriented X 3 - Psych Psych: Normal mood, Normal affect Results - Vitals Vitals: Vital Signs - 24 hr 11/09/20 11/09/20 11:35 12:24 Temperature 36.8 C Heart Rate 105 H 90 Respiratory 16 18 Rate Blood Pressure 153/83 H 107/89 H O2 Saturation 96 100 Oxygen O2 Source Room air PD MEDICAL DECISION MAKING - ED course Complexity details: reviewed results, re-evaluated patient, considered differential, d/w patient ED course: Patient appears to have a small cellulitis on the right thigh. Will place on clindamycin. No abscess at this time. We will have her follow-up with her doctor for recheck. Patient counseled regarding signs and symptoms for which I believe and urgent re-evaluation would be necessary. Patient with good understanding of and agreement to plan and is comfortable going home at this time This document was made in part using voice recognition software. While efforts are made to proofread this document, sound alike and grammatical errors may occur. Departure - Departure Disposition: 01 Home, Self Care Clinical Impression: Cellulitis Qualifiers: Site of cellulitis: trunk Site of cellulitis of trunk: perineum Qualified Code(s): L03.315 - Cellulitis of perineum Condition: Good Instructions: ED Infec Skin Cellulitis Follow-Up: your,doctor in 1 week [Other] Prescriptions: clindamycin HCL [Cleocin HCl] 300 mg PO Q6H #40 cap Comments: Take all antibiotics until gone. Return if you worsen. Follow-up with your doctor for further care. This should improve over the next 48 hours.
[2020-11-09 12:37] VITALS: BP 151/103
== END 2020-11-09 12:38 | disposition home or self-care (01) ==
LOC: ED 11:30
DX: L03.315 Cellulitis of perineum (principal); F17.200 Nicotine dependence, unspecified, uncomplicated
CPT/HCPCS: 99282; 99284; A9270

== ENCOUNTER 2020-11-18 05:34 | Outpatient (CLI) | payer MEDICARE, MEDICAID ==
--- OUTSIDE RECORDS SUMMARY | 2020-11-25 00:17 | EXTERNAL MEDICAL SUMMARY RPT | Continuity of Care Document ---
:1970 Demographics Phone Unavailable Preferred Language Unknown Marital Status Unknown Restorationist Affiliation Unknown Race Unknown Ethnic Group Unknown Author Organization [facility] Address [address] [place] [address] Phone Social History date description facility [id number]
== END 2020-11-18 05:35 | disposition critical access hospital (66) ==
LOC: EMS 05:34
PROVIDERS: ATTEND Emergency Medicine
DX: R20.8 Other disturbances of skin sensation (principal); R45.89 Other symptoms and signs involving emotional state
CPT/HCPCS: A0425; A0429

== ENCOUNTER 2020-11-18 05:51 | Emergency (ER) | payer MEDICARE, MEDICAID ==
[2020-11-18 06:04] VITALS: BP 137/99
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
[2020-11-18] MEDS ORDERED: DEXAMETHASONE 10 MG/ML VIAL PO STA (13:10)
[2020-11-18] MEDS ORDERED: CHERRY SYRUP 10 ML UDC PO ONE (13:10)
[2020-11-18] MEDS ORDERED: KETOROLAC 60 MG/2 ML VIAL IM STA (14:38)
--- OUTSIDE RECORDS SUMMARY | 2020-11-24 23:11 | EXTERNAL MEDICAL SUMMARY RPT | Continuity of Care Document ---
:1970 Demographics Phone Unavailable Preferred Language Unknown Marital Status Unknown Episcopal Affiliation Unknown Race Unknown Ethnic Group Unknown Author Organization [facility] Address [address] [place] [address] Phone Social History date description facility [id number]
== END 2020-11-18 15:42 | disposition home or self-care (01) ==
LOC: EDUNIT# → ED 05:51
DX: M54.2 Cervicalgia (principal); G89.29 Other chronic pain; M79.672 Pain in left foot; M79.671 Pain in right foot; Z59.0 Homelessness; R68.83 Chills (without fever); R53.83 Other fatigue; F17.200 Nicotine dependence, unspecified, uncomplicated
CPT/HCPCS: 96372; 99283; 99284; A9270

== ENCOUNTER 2020-11-19 18:43 | Emergency (ER) | payer MEDICARE, MEDICAID ==
[2020-11-19] MEDS ORDERED: KETOROLAC 60 MG/2 ML VIAL IM STA (19:10)
--- NOTE | 2020-11-19 19:13 | ED Physician Documentation ---
History of Present Illness - Stated complaint Stated Complaint: NECK PX - Chief complaint Chief Complaint: Heent - History obtained from History obtained from: Patient - History of Present Illness Timing: Chronic Pain level max: 8 Pain level now: 8 - Additonal information Additional information: Patient is a 50-year-old female who presents to the emergency department stating she has a headache and neck pain today. These are chronic ongoing issues. She states that she has been sleeping in her storage unit, [place] [facility] about her potential safety. She states she was seen here yesterday because she was cold and had been outside. Today she states that when she turns her head sometimes she feels a popping sensation in the back of her neck. This been ongoing for years. This is not a new issue for her. Worse with movement, better with rest. Happens occasionally. Headache was gradual in onset, holoacranial. Nothing makes it better or worse. 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 HEENT: Tonsil/Adenoidectomy - Present Medications Home Medications: Ambulatory Orders Medication Instructions Recorded Confirmed Lisinopril [Zestril] 10 mg PO DAILY #30 10/07/20 11/18/20 Propranolol [Inderal] 40 mg PO BID #60 10/07/20 11/18/20 hydrOXYzine pamoate [Hydroxyzine 100 mg PO QID PRN #56 10/07/20 11/18/20 Pamoate] Cyclobenzaprine [Flexeril] 10 mg PO TID PRN #30 tablet 10/28/20 11/18/20 Gabapentin [Neurontin] 400 mg PO QID 11/09/20 11/18/20 clindamycin HCL [Cleocin HCl] 300 mg PO Q6H #40 cap 11/09/20 11/18/20 Cyclobenzaprine [Flexeril] 10 mg PO TID PRN #20 tablet 11/18/20 Gabapentin [Neurontin] 400 mg PO TID #40 cap 11/18/20 Acetaminophen [Tylenol] 650 mg PO Q6H PRN #30 tab 11/19/20 - Allergies Allergies/Adverse Reactions: Allergies Allergy/AdvReac Type Severity Reaction Status Date / Time Sulfa (Sulfonamide Allergy Intermediate Nausea Verified 11/19/20 18:46 Antibiotics) - Social History Does the pt smoke?: Yes Smoking Status: Current every day smoker Does the pt drink ETOH?: Yes Does the pt have substance abuse?: Yes - Immunizations Immunizations are current?: Yes - POLST Patient has POLST: No PD ED PE NORMAL - Vitals Vital signs reviewed: Yes - General General: Alert and oriented X 3, No acute distress - HEENT HEENT: Moist mucous membranes - Neck Neck: Supple, no meningeal sign, No bony TTP, No JVD, No bruit, Other (Full range of motion without pain. No crepitus) - Cardiac Cardiac: RRR, Strong equal pulses - Respiratory Respiratory: No respiratory distress, Clear bilaterally - Abdomen Abdomen: Soft, Non tender, Non distended - Back Back: No spinal TTP - Derm Derm: Warm and dry - Extremities Extremities: Normal ROM s pain - Neuro Neuro: Alert and oriented X 3, statistical geneticist 2-12 intact, No motor deficit, No sensory deficit, Normal speech Eye Opening: Spontaneous Motor: Obeys Commands Verbal: Oriented GCS Score: 15 - Psych Psych: Normal mood, Normal affect Results - Vitals Vitals: Oxygen O2 Source Room air PD MEDICAL DECISION MAKING - ED course Complexity details: reviewed old records, considered differential, d/w patient ED course: Patient was given Toradol, headache resolved. No evidence of subarachnoid hemorrhage. Patient is ambulating without difficulty. Normal neurological exam. NIH stroke scale 0. Normal cerebellar testing. Patient will follow up with her doctor for further care. Patient counseled regarding signs and symptoms for which I believe and urgent re-evaluation would be necessary. Patient with good understanding of and agreement to plan and is comfortable going home at this time This document was made in part using voice recognition software. While efforts are made to proofread this document, sound alike and grammatical errors may occur. Departure - Departure Disposition: Home, Self Care Clinical Impression: Neck pain Headache Qualifiers: Headache type: unspecified Headache chronicity pattern: unspecified pattern Intractability: not intractable Qualified Code(s): R51.9 - Headache, unspecified Condition: Good Instructions: ED Cephalgia Unspecified, ED Neck Back Pain General Follow-Up: your,doctor in 1 week [Other] Prescriptions: Acetaminophen [Tylenol] 650 mg PO Q6H PRN #30 tab PRN Reason: Pain Comments: Return if you worsen. Follow up with your doctor for further care. Discharge Date/Time: 11/19/20 19:57
[2020-11-19 19:58] VITALS: BP 130/72
--- OUTSIDE RECORDS SUMMARY | 2020-11-25 01:21 | EXTERNAL MEDICAL SUMMARY RPT | Continuity of Care Document ---
:1970 Demographics Phone Unavailable Preferred Language Unknown Marital Status Unknown Samaritan Affiliation Unknown Race Unknown Ethnic Group Unknown Author Organization [facility] Address [address] [place] [address] Phone Social History date description facility [phone]
== END 2020-11-19 19:57 | disposition home or self-care (01) ==
LOC: ED 18:43
DX: M54.2 Cervicalgia (principal); R51.9 Headache, unspecified; Z59.0 Homelessness; F17.200 Nicotine dependence, unspecified, uncomplicated
CPT/HCPCS: 96372; 99283; 99284

== ENCOUNTER 2020-12-05 21:19 | Outpatient (CLI) | payer MEDICARE, MEDICAID | END 2020-12-05 21:20 | disposition critical access hospital (66) | LOC: EMS 21:19 | DX: Z04.6 Encounter for general psychiatric examination, requested by authority (principal) | CPT/HCPCS: A0425; A0429 ==

== ENCOUNTER 2020-12-05 21:34 | Emergency (ER) | payer MEDICARE, MEDICAID ==
--- NOTE | 2020-12-05 21:50 | ED Physician Documentation ---
PD HPI MHE - Stated complaint Stated Complaint: MHE - Chief complaint Chief Complaint: MHE - History obtained from History obtained from: Patient, EMS - History of Present Illness Primary symptom: Psychosis (Report from EMS is that [facility] had gotten several calls from patient and found her to be having anxiety/agitated demeanor, and delusions that her children were in a tree about to fall, and then in the water drowning, and no children found. They apparently do not live in the area.). No: Suicidal ideation, Suicide attempt Timing - onset: Today Contributing factors: Substance abuse - drugs (report from PD is patient found with meth in her purse. H/o drug use in the past, and also history of bipolar per pt. Patient was not threatening suicide and not acting harmfully per se.) Similar symptoms before: Diagnosis (apparently history of similar with drug use in the past. I do not see repeated ER visits for this though.) Recently seen: Emergency Dept (seen ER 11/19 for neck pain. In October for back pain. Had gotten Rx for Decadron early October. 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 : None HEENT: None Psych: Depression, Anxiety, Bipolar disorder Musculoskeletal: Scoliosis, Chronic back pain Derm: None - Past Surgical History Past Surgical History: Yes /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: Tubal ligation HEENT: Tonsil/Adenoidectomy - Present Medications Home Medications: Ambulatory Orders Medication Instructions Recorded Confirmed Lisinopril [Zestril] 10 mg PO DAILY #30 10/07/20 11/18/20 Propranolol [Inderal] 40 mg PO BID #60 10/07/20 11/18/20 hydrOXYzine pamoate [Hydroxyzine 100 mg PO QID PRN #56 10/07/20 11/18/20 Pamoate] Cyclobenzaprine [Flexeril] 10 mg PO TID PRN #30 tablet 10/28/20 11/18/20 Gabapentin [Neurontin] 400 mg PO QID 11/09/20 11/18/20 clindamycin HCL [Cleocin HCl] 300 mg PO Q6H #40 cap 11/09/20 11/18/20 Cyclobenzaprine [Flexeril] 10 mg PO TID PRN #20 tablet 11/18/20 Gabapentin [Neurontin] 400 mg PO TID #40 cap 11/18/20 Acetaminophen [Tylenol] 650 mg PO Q6H PRN #30 tab 11/19/20 - Allergies Allergies/Adverse Reactions: Allergies Allergy/AdvReac Type Severity Reaction Status Date / Time Sulfa (Sulfonamide Allergy Intermediate Nausea Verified 11/19/20 18:46 Antibiotics) - Living Situation Living Arrangement: reports: Homeless (had [facility], but out of it the past couple of nights and had not slept for 2 nights per pt. ) - Social History Does the pt smoke?: Yes Smoking Status: Current every day smoker Does the pt drink ETOH?: Yes Does the pt have substance abuse?: Yes - Immunizations Immunizations are current?: Yes - POLST Patient has POLST: No PD ED PE NORMAL - Vitals Vital signs reviewed: Yes (BP initially elevated and will recheck) - General General: Alert and oriented X 3, Well developed/nourished, Other (somewhat anxious) - HEENT HEENT: Atraumatic - Neck Neck: Supple, no meningeal sign, No adenopathy - Cardiac Cardiac: RRR, No murmur - Respiratory Respiratory: Clear bilaterally - Abdomen Abdomen: Soft, Non tender - Derm Derm: Normal color, Warm and dry - Extremities Extremities: No edema, No calf tenderness / cord - Neuro Neuro: Alert and oriented X 3, No motor deficit, Normal speech Results - Vitals Vitals: Vital Signs - 24 hr 12/05/20 12/06/20 21:35 06:19 Temperature 36.9 C 36.4 C L Heart Rate 95 89 Respiratory 20 14 Rate Blood Pressure 200/179 H 111/87 H O2 Saturation 99 96 Oxygen O2 Source Room air - Labs Labs: Laboratory Tests 12/05/20 12/05/20 12/05/20 22:01 22:01 22:01 WBC 10.3 RBC 4.36 Hgb 12.8 Hct 40.1 MCV 92.0 MCH 29.4 MCHC 31.9 L RDW 14.1 Plt Count 348 MPV 9.6 Neut # (Auto) 7.4 H Lymph # (Auto) 2.2 [place] # (Auto) 0.6 Eos # (Auto) 0.1 Baso # (Auto) 0.1 Absolute Nucleated RBC 0.00 Nucleated RBC % 0.0 Sodium 141 Potassium 3.8 Chloride 104 Carbon Dioxide 28 Anion Gap 9.0 BUN 15 Creatinine 0.6 Estimated GFR (MDRD) 107 Glucose 118 H Calcium 9.4 Total Bilirubin 0.8 AST 32 ALT 38 Alkaline Phosphatase 101 Total Protein 7.4 Albumin 3.9 Globulin 3.5 Albumin/Globulin Ratio 1.1 Lipase 34 TSH 2.51 Urine Color Urine Clarity Urine pH Ur Specific [place] Urine Protein Urine Glucose (UA) Urine Ketones Urine Occult Blood Urine Nitrite Urine Bilirubin Urine Urobilinogen Ur Leukocyte Esterase Urine RBC Urine WBC Ur Squamous Epith Cells Urine Bacteria Urine Mucus Ur Microscopic Review Urine Culture Comments Urine HCG, Qual Nasal Adenovirus (PCR) Nasal B. parapertussis DNA (PCR) Nasal Coronavir 229E PCR Nasal Coronavir HKU1 PCR Nasal Coronavir NL63 PCR Nasal Coronavir OC43 PCR Nasal Enterovir/Rhinovir PCR Nasal Influenza B PCR Nasal Influenza A PCR Nasal Parainfluen 1 PCR Nasal Parainfluen 2 PCR Nasal Parainfluen 3 PCR Nasal Parainfluen 4 PCR Nasal RSV (PCR) Nasal B.pertussis DNA PCR Nasal C.pneumoniae (PCR) Hugo Human Metapneumo PCR Nasal M.pneumoniae (PCR) Nasal SARS-CoV-2 (PCR) Salicylates < 6.0 Urine Opiates Screen Ur Oxycodone Screen Urine Methadone Screen Ur Propoxyphene Screen Acetaminophen < 10 L Ur Barbiturates Screen Ur Tricyclics Screen Ur Phencyclidine Scrn Ur Amphetamine Screen U Methamphetamines Scrn U Benzodiazepines Scrn Urine Cocaine Screen U Cannabinoids Screen Ethyl Alcohol < 5.0 12/05/20 12/05/20 22:04 22:30 WBC RBC Hgb Hct MCV MCH MCHC RDW Plt Count MPV Neut # (Auto) Lymph # (Auto) Bryan # (Auto) Eos # (Auto) Baso # (Auto) Absolute Nucleated RBC Nucleated RBC % Sodium Potassium Chloride Carbon Dioxide Anion Gap BUN Creatinine Estimated GFR (MDRD) Glucose Calcium Total Bilirubin AST ALT Alkaline Phosphatase Total Protein Albumin Globulin Albumin/Globulin Ratio Lipase TSH Urine Color YELLOW Urine Clarity CLEAR Urine pH 5.5 Ur Specific [place] >=1.030 H Urine Protein NEGATIVE Urine Glucose (UA) NEGATIVE Urine Ketones 15 H Urine Occult Blood SMALL H Urine Nitrite NEGATIVE Urine Bilirubin NEGATIVE Urine Urobilinogen 0.2 (NORMAL) Ur Leukocyte Esterase NEGATIVE Urine RBC 0-5 Urine WBC 0-3 Ur Squamous Epith Cells FEW Squamous Urine Bacteria None Seen Urine Mucus Few Strands Ur Microscopic Review INDICATED Urine Culture Comments NOT INDICATED Urine HCG, Qual NEGATIVE Nasal Adenovirus (PCR) NOT DETECTED Nasal B. parapertussis DNA (PCR) NOT DETECTED Nasal Coronavir 229E PCR NOT DETECTED Nasal Coronavir HKU1 PCR NOT DETECTED Nasal Coronavir NL63 PCR NOT DETECTED Nasal Coronavir OC43 PCR NOT DETECTED Nasal Enterovir/Rhinovir PCR NOT DETECTED Nasal Influenza B PCR NOT DETECTED Nasal Influenza A PCR NOT DETECTED Nasal Parainfluen 1 PCR NOT DETECTED Nasal Parainfluen 2 PCR NOT DETECTED Nasal Parainfluen 3 PCR NOT DETECTED Nasal Parainfluen 4 PCR NOT DETECTED Nasal RSV (PCR) NOT DETECTED Nasal B.pertussis DNA PCR NOT DETECTED Nasal C.pneumoniae (PCR) NOT DETECTED Hugo Human Metapneumo PCR NOT DETECTED Nasal M.pneumoniae (PCR) NOT DETECTED Nasal SARS-CoV-2 (PCR) NOT DETECTED Salicylates Urine Opiates Screen NEGATIVE Ur Oxycodone Screen NEGATIVE Urine Methadone Screen NEGATIVE Ur Propoxyphene Screen NEGATIVE Acetaminophen Ur Barbiturates Screen NEGATIVE Ur Tricyclics Screen POSITIVE H Ur Phencyclidine Scrn NEGATIVE Ur Amphetamine Screen POSITIVE H U Methamphetamines Scrn POSITIVE H U Benzodiazepines Scrn NEGATIVE Urine Cocaine Screen NEGATIVE U Cannabinoids Screen POSITIVE H Ethyl Alcohol PD MEDICAL DECISION MAKING - ED course Complexity details: considered differential (anxious with some delusional/visual hallucination problems. Could be exac of bipolar and/or meth psychosis. Will give some PO meds and have her sleep awhile to see how does and SW eval in AM. She is okay with that. ), d/w patient ED course: The patient has rested through the night with just some p.o. medication to help her relax soon after coming in. Basic labs show positivity for meth use on the U tox. Other labs are pretty normal. We will see how she does upon awakening this morning. Source of opportunity for social work to talk with her. She may awaken in the more coherent and appropriate without hallucinations. If that were the case, then she would not really meet need for detainment. Departure - Departure Clinical Impression: Hallucinations, Methamphetamine abuse Bipolar disorder Qualifiers: Active/Remission status: remission status unspecified Qualified Code(s): F31.9 - Bipolar disorder, unspecified Condition: Stable Record reviewed to determine appropriate education?: Yes
[2020-12-05] MEDS ORDERED: LORazepam 1 MG TABLET PO STA (21:53)
[2020-12-05] MEDS ORDERED: OLANZapine ODT 5 MG TABLET TL STA (21:53)
--- OUTSIDE RECORDS SUMMARY | 2020-12-05 21:56 | EXTERNAL MEDICAL SUMMARY RPT | Continuity of Care Document ---
:1970 Demographics Phone Unavailable Preferred Language Unknown Marital Status Unknown Protestant Affiliation Unknown Race Unknown Ethnic Group Unknown Author Organization [facility] Address [address] [id number] Phone Social History date description facility [phone]
[2020-12-05 22:07] LABS: BASOPHILS # (AUTO) 0.1 10^3/uL (0.0-0.1); BASOPHILS % (AUTO) 0.7 %; EOSINOPHILS # (AUTO) 0.1 10^3/uL (0.0-0.7); EOSINOPHILS % (AUTO) 0.7 %; HCT - HEMATOCRIT 40.1 % (37.0-47.0); HGB - HEMOGLOBIN 12.8 g/dL (12.0-16.0); LYMPHOCYTES # (AUTO) 2.2 10^3/uL (1.5-3.5); LYMPHOCYTES % (AUTO) 21.4 %; MEAN CORPUSCULAR HEMOGLOBIN 29.4 pg (27.0-31.0); MEAN CORPUSCULAR HGB CONC 31.9 g/dL (32.0-36.0); MEAN PLATELET VOLUME 9.6 fL (7.9-10.8); MONOCYTES # (AUTO) 0.6 10^3/uL (0.0-1.0); MONOCYTES % (AUTO) 5.7 %; NEUTROPHILS # (AUTO) 7.4 10^3/uL (1.5-6.6); NEUTROPHILS % (AUTO) 71.2 %; PLT - PLATELET COUNT 348 10^3/uL (130-450); RED BLOOD COUNT 4.36 10^6/uL (4.20-5.40); RED CELL DISTRIBUTION WIDTH 14.1 % (12.0-15.0); WHITE BLOOD COUNT 10.3 x10^3/uL (4.8-10.8)
[2020-12-05 22:23] LABS: ACETAMINOPHEN < 10 ug/mL (10-30); ALBUMIN 3.9 g/dL (3.2-5.5); ALBUMIN/GLOBULIN RATIO 1.1 (1.0-2.2); ALKALINE PHOSPHATASE 101 IU/L (42-121); ALT ALANINE AMINOTRANSFERASE 38 IU/L (10-60); AST ASPARTATE AMINOTRANSFERASE 32 IU/L (10-42); BILIRUBIN,TOTAL 0.8 mg/dL (0.2-1.0); BUN - BLOOD UREA NITROGEN 15 mg/dL (6-20); CALCIUM 9.4 mg/dL (8.5-10.3); CARBON DIOXIDE - CO2 28 mmol/L (21-32); CHLORIDE 104 mmol/L (101-111); CREATININE 0.6 mg/dL (0.4-1.0); ETOH - ETHANOL < 5.0 mg/dL; GFR - MDRD 107 (>89); GLUCOSE 118 mg/dL (70-100); LIPASE 34 U/L (22-51); POTASSIUM 3.8 mmol/L (3.5-5.0); SALICYLATE < 6.0 mg/dL; SODIUM 141 mmol/L (135-145); TOTAL PROTEIN 7.4 g/dL (6.7-8.2)
[2020-12-05 22:33] LABS: MUDS CUTOFF CONCENTRATIONS CUTOFF CONC BELOW:
[2020-12-05 22:39] LABS: CLARITY,URINE CLEAR (CLEAR); GLUCOSE, URINE (UA) NEGATIVE (NEGATIVE); HCG UR QUAL NEGATIVE; KETONES,URINE (UA) 15 mg/dL (NEGATIVE); LEUKOCYTE ESTERASE, URINE NEGATIVE (NEGATIVE); NITRITE,URINE NEGATIVE (NEGATIVE); OCCULT BLOOD,URINE SMALL (NEGATIVE); PH,URINE 5.5 PH (5.0-7.5); PROTEIN,URINE NEGATIVE (NEGATIVE); UROBILINOGEN,URINE 0.2 (NORMAL) E.U./dL (NORMAL)
[2020-12-05 22:42] LABS: BACTERIA,URINE None Seen /HPF (None Seen); BILIRUBIN,URINE NEGATIVE (NEGATIVE); ICTOTEST,URINE NEGATIVE; MUCUS,URINE Few Strands; RBC,URINE 0-5 /HPF (0-5); SQUAMOUS EPITHELIAL CELL,UR FEW Squamous (<= Few); WBC,URINE 0-3 /HPF (0-5)
[2020-12-05 22:46] LABS: AMPHETAMINE SCREEN,URINE POSITIVE (NEGATIVE); BARBITURATE SCREEN,UR NEGATIVE (NEGATIVE); BENZODIAZEPINES SCREEN, URINE NEGATIVE (NEGATIVE); COCAINE SCREEN URINE NEGATIVE (NEGATIVE); METHADONE SCREEN, URINE NEGATIVE (NEGATIVE); METHAMPHETAMINES SCREEN, URINE POSITIVE (NEGATIVE); OPIATE SCREEN, URINE NEGATIVE (NEGATIVE); OXYCODONE SCREEN, URINE NEGATIVE (NEGATIVE); PROPOXYPHENE SCREEN, URINE NEGATIVE (NEGATIVE); THC CANNABINOID SCREEN, URINE POSITIVE (NEGATIVE); TRICYCLIC ANTIDEPRESSANT,URINE POSITIVE (NEGATIVE)
[2020-12-05 22:57] LABS: B. PARAPERTUSSIS- RESP PCR PAN NOT DETECTED; B. PERTUSSIS- RESP PCR PANEL NOT DETECTED; C. PNEUMONIAE- RESP PCR PANEL NOT DETECTED; CORONAVIRUS 229E-RESP PCR NOT DETECTED; CORONAVIRUS HKU1-RESP PCR NOT DETECTED; CORONAVIRUS NL63-RESP PCR NOT DETECTED; CORONAVIRUS OC43-RESP PCR NOT DETECTED; HUMAN METAPNEUMOVIRUS NOT DETECTED; INFLUENZA A- RESP PCR PANEL NOT DETECTED; INFLUENZA B - RESP PCR PANEL NOT DETECTED; M. PNEUMONIAE- RESP PCR PANEL NOT DETECTED; PARAINFLUENZA VIRUS 1 NOT DETECTED; PARAINFLUENZA VIRUS 2 NOT DETECTED; PARAINFLUENZA VIRUS 3 NOT DETECTED; PARAINFLUENZA VIRUS 4 NOT DETECTED; RHINOVIRUS/ENTEROVIRUS NOT DETECTED; RSV- RESP PCR PANEL NOT DETECTED; SARS-CoV-2 -RESP PCR PANEL NOT DETECTED
[2020-12-06 11:54] VITALS: BP 122/85
--- NOTE | 2020-12-06 14:00 | ED Physician Documentation ---
History of Present Illness - Stated complaint Stated Complaint: MHE - Chief complaint Chief Complaint: MHE - History obtained from History obtained from: Patient - History of Present Illness Timing: Today - Additonal information Additional information: 50-year-old female with a history of methamphetamine and amphetamine abuse comes into the emergency department yesterday evening with vivid visual hallucinations that resulted in her odd behavior that ended up having her brought to the hospital by police. 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 HEENT: Tonsil/Adenoidectomy - Present Medications Home Medications: Ambulatory Orders Medication Instructions Recorded Confirmed Lisinopril [Zestril] 10 mg PO DAILY #30 10/07/20 11/18/20 Propranolol [Inderal] 40 mg PO BID #60 10/07/20 11/18/20 hydrOXYzine pamoate [Hydroxyzine 100 mg PO QID PRN #56 10/07/20 11/18/20 Pamoate] Cyclobenzaprine [Flexeril] 10 mg PO TID PRN #30 tablet 10/28/20 11/18/20 Gabapentin [Neurontin] 400 mg PO QID 11/09/20 11/18/20 clindamycin HCL [Cleocin HCl] 300 mg PO Q6H #40 cap 11/09/20 11/18/20 Cyclobenzaprine [Flexeril] 10 mg PO TID PRN #20 tablet 11/18/20 Gabapentin [Neurontin] 400 mg PO TID #40 cap 11/18/20 Acetaminophen [Tylenol] 650 mg PO Q6H PRN #30 tab 11/19/20 hydrOXYzine pamoate [Hydroxyzine 25 - 50 mg PO Q6HR PRN #20 cap 12/06/20 Pamoate] - Allergies Allergies/Adverse Reactions: Allergies Allergy/AdvReac Type Severity Reaction Status Date / Time Sulfa (Sulfonamide Allergy Intermediate Nausea Verified 11/19/20 18:46 Antibiotics) - Social History Does the pt smoke?: Yes Smoking Status: Current every day smoker Does the pt drink ETOH?: Yes Does the pt have substance abuse?: Yes Substance Use and Type: Meth - Immunizations Immunizations are current?: Yes - POLST Patient has POLST: No PD ED PE NORMAL - General General: Alert and oriented X 3, No acute distress, Well developed/nourished - HEENT HEENT: Atraumatic, PERRL, EOMI - Respiratory Respiratory: No respiratory distress - Extremities Extremities: No deformity, No edema - Neuro Neuro: Alert and oriented X 3, 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, No motor deficit, No sensory deficit, Normal speech Eye Opening: Spontaneous Motor: Obeys Commands Verbal: Oriented GCS Score: 15 - Psych Psych: Normal mood, Normal affect Results - Vitals Vitals: Vital Signs - 24 hr 12/05/20 12/06/20 12/06/20 21:35 06:19 10:50 Temperature 36.9 C 36.4 C L Heart Rate 95 89 63 Respiratory 20 14 16 Rate Blood Pressure 200/179 H 111/87 H 159/77 H O2 Saturation 99 96 97 12/06/20 11:53 Temperature 36.7 C Heart Rate 77 Respiratory 17 Rate Blood Pressure 122/85 H O2 Saturation 97 Oxygen O2 Source Room air - Labs Labs: Laboratory Tests 12/05/20 12/05/20 12/05/20 22:01 22:01 22:01 WBC 10.3 RBC 4.36 Hgb 12.8 Hct 40.1 MCV 92.0 MCH 29.4 MCHC 31.9 L RDW 14.1 Plt Count 348 MPV 9.6 Neut # (Auto) 7.4 H Lymph # (Auto) 2.2 [place] # (Auto) 0.6 Eos # (Auto) 0.1 Baso # (Auto) 0.1 Absolute Nucleated RBC 0.00 Nucleated RBC % 0.0 Sodium 141 Potassium 3.8 Chloride 104 Carbon Dioxide 28 Anion Gap 9.0 BUN 15 Creatinine 0.6 Estimated GFR (MDRD) 107 Glucose 118 H Calcium 9.4 Total Bilirubin 0.8 AST 32 ALT 38 Alkaline Phosphatase 101 Total Protein 7.4 Albumin 3.9 Globulin 3.5 Albumin/Globulin Ratio 1.1 Lipase 34 TSH 2.51 Urine Color Urine Clarity Urine pH Ur Specific [place] Urine Protein Urine Glucose (UA) Urine Ketones Urine Occult Blood Urine Nitrite Urine Bilirubin Urine Urobilinogen Ur Leukocyte Esterase Urine RBC Urine WBC Ur Squamous Epith Cells Urine Bacteria Urine Mucus Ur Microscopic Review Urine Culture Comments Urine HCG, Qual Nasal Adenovirus (PCR) Nasal B. parapertussis DNA (PCR) Nasal Coronavir 229E PCR Nasal Coronavir HKU1 PCR Nasal Coronavir NL63 PCR Nasal Coronavir OC43 PCR Nasal Enterovir/Rhinovir PCR Nasal Influenza B PCR Nasal Influenza A PCR Nasal Parainfluen 1 PCR Nasal Parainfluen 2 PCR Nasal Parainfluen 3 PCR Nasal Parainfluen 4 PCR Nasal RSV (PCR) Nasal B.pertussis DNA PCR Nasal C.pneumoniae (PCR) Hugo Human Metapneumo PCR Nasal M.pneumoniae (PCR) Nasal SARS-CoV-2 (PCR) Salicylates < 6.0 Urine Opiates Screen Ur Oxycodone Screen Urine Methadone Screen Ur Propoxyphene Screen Acetaminophen < 10 L Ur Barbiturates Screen Ur Tricyclics Screen Ur Phencyclidine Scrn Ur Amphetamine Screen U Methamphetamines Scrn U Benzodiazepines Scrn Urine Cocaine Screen U Cannabinoids Screen Ethyl Alcohol < 5.0 12/05/20 12/05/20 22:04 22:30 WBC RBC Hgb Hct MCV MCH MCHC RDW Plt Count MPV Neut # (Auto) Lymph # (Auto) [place] # (Auto) Eos # (Auto) Baso # (Auto) Absolute Nucleated RBC Nucleated RBC % Sodium Potassium Chloride Carbon Dioxide Anion Gap BUN Creatinine Estimated GFR (MDRD) Glucose Calcium Total Bilirubin AST ALT Alkaline Phosphatase Total Protein Albumin Globulin Albumin/Globulin Ratio Lipase TSH Urine Color YELLOW Urine Clarity CLEAR Urine pH 5.5 Ur Specific [place] >=1.030 H Urine Protein NEGATIVE Urine Glucose (UA) NEGATIVE Urine Ketones 15 H Urine Occult Blood SMALL H Urine Nitrite NEGATIVE Urine Bilirubin NEGATIVE Urine Urobilinogen 0.2 (NORMAL) Ur Leukocyte Esterase NEGATIVE Urine RBC 0-5 Urine WBC 0-3 Ur Squamous Epith Cells FEW Squamous Urine Bacteria None Seen Urine Mucus Few Strands Ur Microscopic Review INDICATED Urine Culture Comments NOT INDICATED Urine HCG, Qual NEGATIVE Nasal Adenovirus (PCR) NOT DETECTED Nasal B. parapertussis DNA (PCR) NOT DETECTED Nasal Coronavir 229E PCR NOT DETECTED Nasal Coronavir HKU1 PCR NOT DETECTED Nasal Coronavir NL63 PCR NOT DETECTED Nasal Coronavir OC43 PCR NOT DETECTED Nasal Enterovir/Rhinovir PCR NOT DETECTED Nasal Influenza B PCR NOT DETECTED Nasal Influenza A PCR NOT DETECTED Nasal Parainfluen 1 PCR NOT DETECTED Nasal Parainfluen 2 PCR NOT DETECTED Nasal Parainfluen 3 PCR NOT DETECTED Nasal Parainfluen 4 PCR NOT DETECTED Nasal RSV (PCR) NOT DETECTED Nasal B.pertussis DNA PCR NOT DETECTED Nasal C.pneumoniae (PCR) NOT DETECTED [place] Human Metapneumo PCR NOT DETECTED Nasal M.pneumoniae (PCR) NOT DETECTED Nasal SARS-CoV-2 (PCR) NOT DETECTED Salicylates Urine Opiates Screen NEGATIVE Ur Oxycodone Screen NEGATIVE Urine Methadone Screen NEGATIVE Ur Propoxyphene Screen NEGATIVE Acetaminophen Ur Barbiturates Screen NEGATIVE Ur Tricyclics Screen POSITIVE H Ur Phencyclidine Scrn NEGATIVE Ur Amphetamine Screen POSITIVE H U Methamphetamines Scrn POSITIVE H U Benzodiazepines Scrn NEGATIVE Urine Cocaine Screen NEGATIVE U Cannabinoids Screen POSITIVE H Ethyl Alcohol PD MEDICAL DECISION MAKING - ED course Complexity details: reviewed old records, reviewed results, considered differential, d/w patient ED course: 50-year-old female with history of amphetamine and methamphetamine abuse presents to the emergency department last night with odd behavior resulting from vivid visual hallucinations. [place] once I explained this to the patient she became accepting of the fact that she had done this and requested medication for anxiety. She is asking for Valium or propranolol. I discussed with her the use of hydroxyzine and she would much prefer that. She does have experience with this. The director of social services evaluated the patient there were no specific resources that would be helpful for the patient from the patient's point of view. Departure - Departure Disposition: 01 Home, Self Care Clinical Impression: Hallucinations, Methamphetamine abuse Bipolar disorder Qualifiers: Active/Remission status: remission status unspecified Qualified Code(s): F31.9 - Bipolar disorder, unspecified Condition: Stable Instructions: Abuse Meth Abuse and Addiction Follow-Up: [facility] [Provider Group] Prescriptions: hydrOXYzine pamoate [Hydroxyzine Pamoate] 25 - 50 mg PO Q6HR PRN #20 cap PRN Reason: Anxiety
[2020-12-06] MEDS ORDERED: hydrOXYzine PAMOATE 25 MG CAPSULE PO STA (14:37)
== END 2020-12-06 15:05 | disposition home or self-care (01) ==
LOC: EDUNIT# → ED 21:34
DX: F15.129 Other stimulant abuse with intoxication, unspecified (principal); F31.9 Bipolar disorder, unspecified; F17.200 Nicotine dependence, unspecified, uncomplicated; Z59.0 Homelessness; Z20.822 Contact with and (suspected) exposure to COVID-19
CPT/HCPCS: 36415; 80053; 80306; 80307; 81001; 81025; 83690; 84443; 85025; 87631; 99283; A9270; G0480; J8499; 0202U; 80320; 80329; 81003; 87086